=== PATIENT | male | born 1960 | race Caucasian/White ===

== ENCOUNTER → 2019-10-03 | Outpatient (CLI) | payer BC ==
[~2019-10-03] MED LIST: AMLO1TAB24 PO; ASPI-226 PO; CLOP75TA2 PO; GABA-843 PO; METO50TA7 PO; NOVO1INJ4; ROSU20TA5 PO; ZETI10TA16 PO
== END ==
LOC: M LABSMTC 10:27
PROVIDERS: ATTEND Anesthesiology
DX: Z01.812 Encounter for preprocedural laboratory examination (principal)
CPT/HCPCS: C9803; U0003

== ENCOUNTER 2019-10-08 08:58 | Day surgery (SDC) | payer BC ==
[~2019-10-08] VITALS: Ht 177.8 cm; Wt 101.6 kg
[~2019-10-08 08:58] MED LIST changes: +GABAPENTIN 300 MG CAP PO ONE; +LACRILUBE (AKWA TEARS) OPHTH OINT 3.5 GM As Ordered ONE; +LIDOCAINE 2% 100MG/5ML SDV (FOR ANES.) As Ordered ONE; +LR 1,000 ML IV ONE; +MIDAZOLAM INJ 2MG/2ML VIAL (J2250 PER 1MG) As Ordered ONE; +ONDANSETRON 4MG/2ML VIAL As Ordered ONE; +PERCOCET 5MG/325MG TAB PO ONE; +ROCURONIUM BROMIDE 50 MG/5 ML VIAL As Ordered ONE; +dexameTHASONE 4 MG/ML 1ML VIAL (J1100 PER 1MG) As Ordered ONE; +fentaNYL 250 MCG/5 ML INJECTION (J3010) As Ordered ONE; +propofoL 200 MG/20 ML VIAL As Ordered ONE
[2019-10-08] MEDS ORDERED: METAMUCIL (PSYLLIUM) PACKET PO SCH (09:00)
[2019-10-08] MEDS ORDERED: ceFAZolin SOD 2 GM in IV 1 EA IV ONE ×2 (09:00→16:00)
[2019-10-08] MEDS ORDERED: THROMBIN SOLN 20,000 UNITS KIT As Ordered ONE (09:49)
[2019-10-08] MEDS ORDERED: BACITRACIN PWD 50,000 UNITS VIAL As Ordered ONE (09:49)
[2019-10-08] MEDS ORDERED: BUPIVACAINE HCL 0.25% 10ML VIAL As Ordered ONE (09:50)
[2019-10-08] MEDS ORDERED: BUPIVACAINE LIPOSOME/PF 1.3% 20ML VIAL (13.3MG/ML)(EXPAREL)(C9290 PER1MG) As Ordered ONE (09:50)
[2019-10-08 10:06] LABS: HEMATOCRIT 40.8 % (42.0-52.0); HEMOGLOBIN 13.9 g/dl (13.5-17.5); MEAN CORPUSCULAR HEMOGLOBIN 29.9 pg (27.0-33.0); MEAN CORPUSCULAR HGB CONC 34.1 g/dl (32.0-36.5); MEAN CORPUSCULAR VOLUME 87.7 fl (80.0-96.0); PLATELET COUNT, AUTOMATED 214 10^3/uL (150-450); RED BLOOD COUNT 4.65 10^6/uL (4.30-6.10); WHITE BLOOD COUNT 6.9 10^3/uL (4.0-10.0)
[2019-10-08 10:39] LABS: BLOOD UREA NITROGEN 16 MG/DL (7-18); CALCIUM LEVEL 8.8 MG/DL (8.5-10.1); CARBON DIOXIDE LEVEL 27 MEQ/L (21-32); CHLORIDE LEVEL 108 MEQ/L (98-107); CREATININE FOR GFR 0.82 MG/DL (0.70-1.30); GLOMERULAR FILTRATION RATE > 60.0 (>56); GLUCOSE, FASTING 234 MG/DL (70-100); POTASSIUM SERUM 3.4 MEQ/L (3.5-5.1); SODIUM LEVEL 141 MEQ/L (136-145)
[2019-10-08] MEDS ORDERED: GLYCOPYRROLATE INJ 0.2 MG/ML 2 ML VIAL As Ordered ONE (11:01)
[2019-10-08] MEDS ORDERED: PHENYLephrine HCL 500 MCG/5 ML (100MCG/ML) SYRINGE (J2370) As Ordered ONE (11:02)
[2019-10-08] MEDS ORDERED: ePHEDrine SULFATE 25 MG/5 ML(5MG/ML) SYRINGE As Ordered ONE (11:02)
[2019-10-08] MEDS ORDERED: SUGAMMADEX SODIUM 500 MG/5 ML VIAL (BRIDION) As Ordered ONE (11:02)
[2019-10-08] MEDS: BUPIVACAINE/EPIN 0.25% 30 ML VIAL As Ordered ONE (11:09)
[2019-10-08] MEDS ORDERED: TRANEXAMIC ACID 100 MG/ML 10ML VIAL As Ordered ONE (11:15)
[2019-10-08] MEDS ORDERED: HumaLOG INSULIN (NovoLOG) PER UNIT SC ONE ×2 (11:15→15:00)
[2019-10-08] MEDS ORDERED: EPINEPHrine INJ 1 MG/ML 1ML AMP As Ordered ONE (11:16)
[2019-10-08] MEDS ORDERED: PHENYLEPHRINE 10MG/ML 1ML VIAL (J2370 PER 1) As Ordered ONE (11:16)
[2019-10-08] MEDS ORDERED: KETAMINE HCL 200 MG/20 ML VIAL As Ordered ONE (12:08)
[2019-10-08] MEDS ORDERED: MORPHINE 4 MG/ML 1ML VIAL/SYRINGE (J2270) IV PRN (14:00)
[2019-10-08] MEDS ORDERED: fentaNYL 100 MCG/2 ML INJECTION (J3010) IV PRN (14:00)
[2019-10-08] MEDS ORDERED: PERCOCET 5MG/325MG TAB PO PRN ×3 (14:00)
[2019-10-08] MEDS ORDERED: METOCLOPRAMIDE INJ 10MG/2ML VIAL (J2765 PER 1) IV PRN (14:00)
[2019-10-08] MEDS ORDERED: ONDANSETRON 4MG/2ML VIAL IV PRN (14:00)
[2019-10-08] MEDS ORDERED: LR 1,000 ML IV SCH ×3 (14:00→16:30)
[2019-10-08 15:17] VITALS: BP 138/61
[2019-10-08 15:42] VITALS: BP 137/62
[2019-10-08] MEDS: LR 1,000 ML IV SCH ×4 (15:59→16:05)
[2019-10-08 16:30] VITALS: BP 133/92
--- NOTE | 2019-10-08 16:31 | CR.PDOC ---
General Date of Consultation: Oct 08, 2019 Consultation REASON FOR CONSULTATION/CHIEF COMPLAINT: post-operative medical management. HISTORY OF PRESENT ILLNESS: 59 yo M with a hx of IDDM, HTN, CAD, s/p R lateral laminectomy this afternoon by Dr. Jain. ALLERGIES: Please see below. HOME MEDICATIONS: Please see below. PAST MEDICAL HISTORY: 1. IDDM 2. CAD 3. HTN PAST SURGICAL HISTORY: Non contributory FAMILY HISTORY: Unable to provide SOCIAL HISTORY: denies smoking, denies etoh use REVIEW OF SYSTEMS: CONSTITUTIONAL: NA. HEENT: NA. CARDIOVASCULAR: NA. RESPIRATORY: NA. GENITOURINARY: NA. MUSCULOSKELETAL: mild back pain at operative site L4. GASTROINTESTINAL: none. SKIN: none. NEUROLOGICAL: none. PSYCHIATRIC: none. ENDOCRINE: none. HEMATOLOGIC/LYMPHATIC: none. ALLERGIC/IMMUNOLOGIC: none. PHYSICAL EXAMINATION: VITAL SIGNS: Please see below. GENERAL APPEARANCE: NAD, comfortable in ed HEENT: PERRLA. RESPIRATORY: lungs CTAB CARDIOVASCULAR: RRR, normal S1, S2 ABDOMEN: soft, non tender EXTREMITIES: no edema, no joint deformity. NEUROLOGICAL: no focal neuro deficits. PSYCHIATRIC: calm, cooperative. LABORATORY DATA: Please see below. ASSESSMENT/PLAN: This is a 59 yo M with a hx of CAD (s/p stenting), HTN, IDDM, s/p laminectomy at L4 by Dr. Jain for day surgery. Hospitalist service consulted for medical management given IDDM. 1. IDDM: reports taking Humulin 70/30 60 units BID (spoke to pharmacy, has rx for 35 units BID to a max of 70). BG 234. Increase 70/30 to 40 units while in hospital. hypoglycemia precautions. ISS. A1c to check by PCP. 2. HTN: amlodipine 5 mg daily, metoprolol 50 mg BID. Resume home meds. Well controlled. 3. CAD: followed by Dr. Farrar in [place]. S/p stenting. ASA/plavix. Statin. Ezetimibe. 4. Neuropathy: gabapentin 300 mg PO BID, can resume on DC. 5. Bowel regimen: stool softeners. DVT ppx per orthopedic service. Thank you very much for the consult. Please re-consult as need arises. Vital Signs/I&O Vital Signs Date Time Temp Pulse Resp B/P (MAP) Pulse Ox O2 Delivery O2 Flow Rate FiO2 10/08/19 15:42 97.1 71 16 137/62 (87) 94 Room Air 10/08/19 13:32 10 Laboratory Data Labs 24H Laboratory Tests 2 10/08/19 09:49: Nucleated Red Blood Cells % (auto) 0.0, Anion Gap 6L, Glomerular Filtration Rate > 60.0, Calcium Level 8.8 CBC/BMP Laboratory Tests 10/08/19 09:49 Allergies Coded Allergies: Contrast Media (Verified Allergy, Unknown, rash, 10/06/19) Home Medications Scheduled Amlodipine Besylate (Amlodipine Besylate) 5 Mg Tablet, 5 MG PO DAILY, (Reported) Aspirin (Aspirin EC) 81 Mg Tablet.dr, 81 MG PO DAILY, (Reported) Clopidogrel Bisulfate (Clopidogrel) 75 Mg Tablet, 75 MG PO DAILY, (Reported) Ezetimibe (Zetia) 10 Mg Tablet, 10 MG PO DAILY, (Reported) Gabapentin (Gabapentin) 300 Mg Capsule, 300 MG PO BID, (Reported) Metoprolol Tartrate (Metoprolol Tartrate) 50 Mg Tablet, 50 MG PO BID, (Reported) Rosuvastatin Calcium (Rosuvastatin Calcium) 20 Mg Tablet, 20 MG PO DAILY, (Reported) Miscellaneous Medications Insulin NPH Hum/Reg Insulin Hm (Novolin 70-30 100 Unit/ml Vial) 100 Unit/1 Ml Vial, (Reported) GABBY ELMORE MD Oct 08, 2019 16:31
[2019-10-08] MEDS ORDERED: POTASSIUM CHLORIDE 10 MEQ SR TABLET PO ONE (17:15)
[2019-10-08 17:30] VITALS: BP 143/72
[2019-10-08] MEDS ORDERED: GABAPENTIN 300 MG CAP PO SCH (21:00)
[2019-10-08] MEDS ORDERED: MECLIZINE 25 MG TABLET PO SCH (21:00)
[2019-10-08] MEDS ORDERED: METOPROLOL TART 50 MG TAB PO SCH (21:00)
[2019-10-09] MEDS ORDERED: HumuLIN (NovoLIN)70/30 INSULIN INJ PER UNIT SC SCH ×2 (07:30)
[2019-10-09] MEDS ORDERED: EZETIMIBE 10 MG TAB (ZETIA) PO SCH (09:00)
[2019-10-09] MEDS ORDERED: PANTOPRAZOLE 40MG TAB (PROTONIX) PO SCH (09:00)
[2019-10-09] MEDS ORDERED: amLODIPine 5 MG TAB PO SCH (09:00)
[2019-10-09] MEDS ORDERED: ASPIRIN 81 MG CHEW TABLET PO SCH (09:00)
[2019-10-09] MEDS ORDERED: LOSARTAN 50MG TABLET PO SCH (09:00)
[2019-10-09] MEDS ORDERED: ROSUVASTATIN 10 MG TAB (CRESTOR) PO SCH (09:00)
--- NOTE | 2019-10-30 15:14 | RO ---
DATE OF OPERATION: 10/08/2019 PREOPERATIVE DIAGNOSIS: Right L4-5 disk herniation with extrusion, superior migration into the neural foramen and high up onto the lamina of 4. POSTOPERATIVE DIAGNOSIS: Right L4-5 disk herniation with extrusion superior migration into the neural foramen and high up onto the lamina of 4. PROCEDURE: Right L4 unilateral laminectomy for removal of extruded migrated disk material. SURGEON: Venkata Jain MD [employer] LIAISON: SHAWN Horan ANESTHESIA: General endotracheal ESTIMATED BLOOD LOSS: 120 ml, replaced with Crystalloid. COMPLICATIONS: None. INDICATIONS: Right lower extremity radicular pain. MRI evidence of an extruded, migrated disk herniation under the lamina of L4 on the right side with some foraminal extension. Next, consent reviewed in detail including a cindy discussion of pathology involved, the procedure proposed, alternatives including doing nothing and risks including, but not limited to pain, failure, infection, bleeding, blood loss, incomplete relief of symptoms, need for additional surgery and other issues, the patient agrees to proceed with surgery. OPERATIVE COURSE: Identified in the holding area, site and side verified. The patient wants to proceed with surgery. The patient was brought to the operating room. General endotracheal anesthesia was administered. He was positioned in the usual fashion on the Frank frame. We choose the Frank frame because the patient had an elevated body mass index (BMI) and a large protuberant abdomen, not amenable to the use of the Papito frame. Next, once he was sterilely prepped and draped in the usual fashion, time-out was accomplished. I stood on the patient's right, Mr. Tubbs on the left. The line of the incision was infiltrated with 25% Marcaine with epinephrine. He had been sterilely prepped and draped. Next, the incision was made with the 10 blade knife developed down through skin, subcuticular tissue to the posterior lumbar fascia. This was reflected off of the spinous processes of 4 and 5 down to the 4-5 interspace. Next, a cross table lateral x-ray was taken to verify our location. Next, the patients large body habitus necessitated the use of 75 mm blades on the retractor. Next, at this stage, the operating microscope was brought in for the remainder of the procedure. Mr. Tubbs looked through oculars on the right; I through oculars on the left. Next, the high-speed bur was utilized to implement the right unilateral laminectomy of L4 extending from the inferior lamina of 4 superiorly through the lamina of L4 to the interspace of 3-4. Ligamentum flavum was removed using curve curettes, pituitaries and Kerrisons. Next, this exposed the thecal sac. Next, I took care to try and preserve the facet complex at 4-5 on the right side, perhaps 30% of the facet complex was needed to be dbrided here. Next, Irby Wang was utilized. I palpated the annulus under the shoulder of the traversing nerve root and this was opened and a small amount of disk material was removed. Bipolar cautery was utilized for hemostasis and the patient did have significantly hypertrophied epidural. I utilized the Justin probe, as well as the Irby Wang to probe additional disk material, which extended laterally from the annulus and was able to be extruded through the rent created in the additional extruded disk material, which was in the transforaminal area affecting the exiting nerve root, this was removed piecemeal fashion and a considerable amount of disk material was able to be retrieved using the Irby Wang and the Justin retractor from the neural foraminal area and the axillary area of the exiting 4th nerve root. Next, once this was accomplished, hemostasis was accomplished using TXA solution, as well as thrombin Gelfoam. Next, this was accomplished, irrigation was accomplished. Next, retractors are removed. Posterior lumbar fascia was re-approximated. The skin was approximately using interrupted stitch, as well as the Prineo dressing. We had also utilized Exparel solution 40 cc around the wound and fascial structures. Mr. Tubbs was present and participated in the entirety of the case and capacity of power plant assistant. COOPER
--- NOTE | 2019-11-04 07:43 | REP ---
FLUOROSCOPIC IMAGING CLINICAL: Laminectomy. TECHNIQUE: Cross-table intraoperative portable x-ray of the lumbar spine. FINDINGS: Two images demonstrate a probe via posterior approach at the L4-5 interspace. NEOD
== END 2019-10-08 19:05 | disposition home or self-care (01) ==
LOC: M SDC 08:58 → M MS5PR 15:05 → M SDC 19:05
PROVIDERS: ATTEND Orthopaedic Surgery
DX: M51.26 Other intervertebral disc displacement, lumbar region (principal); I25.10 Atherosclerotic heart disease of native coronary artery without angina pectoris; E11.9 Type 2 diabetes mellitus without complications; I10 Essential (primary) hypertension; Z79.82 Long term (current) use of aspirin; Z79.4 Long term (current) use of insulin; Z91.040 Latex allergy status; Z79.02 Long term (current) use of antithrombotics/antiplatelets
CPT/HCPCS: 36415; 63030; 76000; 80048; 85027; 86850; 86900; 86901; 88304; 96361; 96365; C9290; J0171; J0690; J1100; J2250; J2370; J2405; J2765; J3010

== ENCOUNTER → 2023-10-05 | Outpatient (REF) | payer BC ==
[~2023-10-05] MED LIST changes: +EZET10TA58 PO; +GABA-282 PO; -GABA-843 PO; -GABAPENTIN 300 MG CAP PO ONE; -LACRILUBE (AKWA TEARS) OPHTH OINT 3.5 GM As Ordered ONE; -LIDOCAINE 2% 100MG/5ML SDV (FOR ANES.) As Ordered ONE; -LR 1,000 ML IV ONE; -MIDAZOLAM INJ 2MG/2ML VIAL (J2250 PER 1MG) As Ordered ONE; -ONDANSETRON 4MG/2ML VIAL As Ordered ONE; -PERCOCET 5MG/325MG TAB PO ONE; -ROCURONIUM BROMIDE 50 MG/5 ML VIAL As Ordered ONE; -ROSU20TA5 PO; +ROSU20TA61 PO; -ZETI10TA16 PO; -dexameTHASONE 4 MG/ML 1ML VIAL (J1100 PER 1MG) As Ordered ONE; -fentaNYL 250 MCG/5 ML INJECTION (J3010) As Ordered ONE; -propofoL 200 MG/20 ML VIAL As Ordered ONE
[2023-10-05 16:18] LABS: CREATININE, URINE 292.1 MG/DL; MAU/CREAT RATIO 28.4 MCG/MG (0.0-30.0)
== END ==
LOC: M LAB REF 14:58
PROVIDERS: ATTEND Nurse Practitioner Family
DX: E10.65 Type 1 diabetes mellitus with hyperglycemia (principal)